=== PATIENT | male | born 1940 | race Caucasian/White ===

== ENCOUNTER → 2021-10-29 | Outpatient (CLI) | payer MEDICARE | LOC: EDBD 14:45 → CT 14:45 | DX: R10.31 Right lower quadrant pain (principal) | CPT/HCPCS: 36415; 72192; 82565; 84520; Q9967 ==

== ENCOUNTER 2021-11-02 21:00 | Emergency (ER) | payer MEDICARE | END 2021-11-02 23:53 | disposition left against medical advice (07) | LOC: ER1 21:00 | DX: Z53.21 Procedure and treatment not carried out due to patient leaving prior to being seen by health care provider (principal) ==